=== PATIENT | female | born 1990 | race Caucasian/White ===

== ENCOUNTER 2017-05-29 18:02 | Inpatient (IN) | payer MEDICAID ==
[~2017-05-29] VITALS: Ht 160 cm; Wt 67.0 kg
[2017-06-03] MEDS ORDERED: MISOPROSTOL 25 MCG TABLET ONE (22:36)
[2017-06-03] MEDS ORDERED: OXYTOCIN 30U/ 0.9% NaCL 500ML 500 ML IV ONE (22:38)
[2017-06-03] MEDS: LACTATED RINGERS 1,000 ML IV SCH (22:50)
[2017-06-03] MEDS ORDERED: METOCLOPRAMIDE 5 MG/ML, 2ML IVPush PRN (23:00)
[2017-06-03] MEDS ORDERED: ONDANSETRON 2MG/ML, 2ML IVPush PRN (23:00)
[2017-06-03] MEDS ORDERED: CALCIUM CARBONATE 500 MG TAB.CHEW PO PRN (23:00)
[2017-06-03] MEDS ORDERED: SODIUM CITRATE/CITRIC ACID 30 ML UDC PO PRN (23:00)
[2017-06-03] MEDS ORDERED: FENTANYL PF 100 MCG/2ML IV PRN (23:00)
[2017-06-03] MEDS ORDERED: MISOPROSTOL 25 MCG TABLET VG PRN (23:00)
[2017-06-03 23:07] LABS: BASOPHILS # (AUTO) 0.07 x10^3/uL (0-0.1); BASOPHILS % (AUTO) 1 % (0-1); EOSINOPHILS # (AUTO) 0.12 x10^3/uL (0-0.4); EOSINOPHILS % (AUTO) 1 % (1-7); LYMPHOCYTES # (AUTO) 2.52 x10^3/uL (1-3.4); LYMPHOCYTES % (AUTO) 19 % (22-44); MD NO; MEAN CORPUSCULAR HEMOGLOBIN 33.5 pg (27.0-34.8); MEAN CORPUSCULAR VOLUME 98.6 fL (80-100); MEAN PLATELET VOLUME 9.1 fL (7.4-10.4); MONOCYTES # (AUTO) 0.95 x10^3/uL (0.2-0.8); MONOCYTES % (AUTO) 7 % (2-9); NEUTROPHILS # (AUTO) 9.59 x10^3/uL (1.8-6.8); NEUTROPHILS % (AUTO) 72 % (42-75); PLATELET COUNT 244 x10^3/uL (130-400); RED BLOOD COUNT 3.57 x10^6/uL (3.82-5.3); RED CELL DISTRIBUTION WIDTH 14.1 % (9.6-15.2)
[2017-06-03] MEDS ORDERED: LIDOCAINE 1%, 20ML ONE (23:09)
[2017-06-03] MEDS ORDERED: MISOPROSTOL 200 MCG TABLET ONE (23:09)
[2017-06-03] MEDS ORDERED: OXYTOCIN 30U/ 0.9% NaCL 500ML 500 ML ONE (23:09)
[2017-06-03] MEDS ORDERED: NEWBORN KIT ONE (23:09)
[2017-06-03] MEDS ORDERED: SODIUM CITRATE/CITRIC ACID 30 ML UDC ONE (23:47)
[2017-06-03] MEDS ORDERED: METOCLOPRAMIDE 5 MG/ML, 2ML ONE (23:47)
[2017-06-03] MEDS ORDERED: TERBUTALINE 1 MG/ML, 1ML ONE (23:57)
[2017-06-04] MEDS: OXYTOCIN 30U/ 0.9% NaCL 500ML 500 ML IV SCH
[2017-06-04] MEDS ORDERED: OXYTOCIN 30U/ 0.9% NaCL 500ML 500 ML IV PRN (04:21)
[2017-06-04] MEDS: D5%-LACTATED RINGERS 1,000 ML IV SCH ×4 (06:38→22:38)
[2017-06-04] MEDS ORDERED: FENTANYL PF 100 MCG/2ML ONE ×3 (11:38→16:36)
[2017-06-04] MEDS: FENTANYL PF 100 MCG/2ML IVPush PRN ×2 (11:40→15:31)
[2017-06-04] MEDS: LACTATED RINGERS 1,000 ML IV SCH ×3 (15:32→22:38)
[2017-06-04] MEDS ORDERED: BUPIVACAINE 0.25% ONE (16:36)
[2017-06-04] MEDS ORDERED: FENTANYL/BUPIV./NS/PF 250 ML EPIDCONT ONE (16:37)
[2017-06-04] MEDS ORDERED: DIPH,PERTUSS(ACELL),TET VAC/PF NC IM-VACC PRN (23:00)
[2017-06-04] MEDS ORDERED: ONDANSETRON 2MG/ML, 2ML IV PRN (23:00)
[2017-06-04] MEDS ORDERED: CALCIUM CARBONATE 500 MG TAB.CHEW PO PRN (23:00)
[2017-06-04] MEDS ORDERED: OXYcodone/APAP 5/325MG TABLET PO PRN (23:00)
[2017-06-04] MEDS ORDERED: MAGNESIUM HYDROXIDE 8%, 30ML UDC PO PRN (23:00)
[2017-06-04] MEDS ORDERED: RHOGAM FROM BLOOD BANK 1 NOTE EA IM/IV ONE (23:00)
[2017-06-04] MEDS ORDERED: MEASLES,MUMPS&RUBELLA VACC/PF 0.5 ML SQ PRN (23:00)
[2017-06-04] MEDS ORDERED: MISOPROSTOL 200 MCG TABLET PR PRN (23:00)
[2017-06-04] MEDS ORDERED: ACETAMINOPHEN 325 MG TABLET PO PRN ×2 (23:00)
[2017-06-05] MEDS ORDERED: OXYTOCIN 10 UNITS/ML, 1ML ONE
[2017-06-05] MEDS ORDERED: IBUPROFEN 600 MG TABLET ONE (00:35)
[2017-06-05] MEDS ORDERED: OXYcodone/APAP 5/325MG TABLET ONE (00:36)
[2017-06-05] MEDS: OXYcodone/APAP 5/325MG TABLET PO PRN ×3 (00:45→21:03)
[2017-06-05] MEDS: IBUPROFEN 600 MG TABLET PO PRN ×4 (00:45→21:04)
[2017-06-05] MEDS ORDERED: OXYTOCIN 30U/ 0.9% NaCL 500ML 500 ML ONE (00:58)
[2017-06-05 02:50] VITALS: BP 96/57
[2017-06-05] MEDS: FENTANYL PF 100 MCG/2ML IVPush PRN (03:46)
[2017-06-05 05:00] VITALS: BP 98/60
[2017-06-05] MEDS: LACTATED RINGERS 1,000 ML IV SCH (06:38)
[2017-06-05] MEDS: DOCUSATE 100 MG CAPSULE PO PRN ×2 (07:19→21:04)
[2017-06-05] MEDS: PRENATAL VIT/IRON/FA 1 EACH TABLET PO SCH (07:20)
[2017-06-05 08:00] VITALS: BP 100/57
[2017-06-05 08:35] LABS: MEAN CORPUSCULAR HEMOGLOBIN 33.9 pg (27.0-34.8); MEAN CORPUSCULAR HGB CONC 34.6 g/dL (32.4-35.8); MEAN CORPUSCULAR VOLUME 97.9 fL (80-100); MEAN PLATELET VOLUME 9.1 fL (7.4-10.4); PLATELET COUNT 203 x10^3/uL (130-400); RED BLOOD COUNT 3.05 x10^6/uL (3.82-5.3); RED CELL DISTRIBUTION WIDTH 14.1 % (9.6-15.2)
[2017-06-05 08:50] LABS: BASOPHILS # (AUTO) 0.09 x10^3/uL (0-0.1); BASOPHILS % (AUTO) 0 % (0-1); EOSINOPHILS # (AUTO) 0.03 x10^3/uL (0-0.4); EOSINOPHILS % (AUTO) 0 % (1-7); LYMPHOCYTES # (AUTO) 1.83 x10^3/uL (1-3.4); LYMPHOCYTES % (AUTO) 9 % (22-44); MD SCAN; MONOCYTES # (AUTO) 1.35 x10^3/uL (0.2-0.8); MONOCYTES % (AUTO) 6 % (2-9); NEUTROPHILS # (AUTO) 17.81 x10^3/uL (1.8-6.8); NEUTROPHILS % (AUTO) 84 % (42-75)
[2017-06-05] MEDS: OXYTOCIN 30U/ 0.9% NaCL 500ML 500 ML IV SCH (08:55)
[2017-06-05 19:03] VITALS: BP 96/61
[2017-06-06] MEDS: IBUPROFEN 600 MG TABLET PO PRN (07:09)
[2017-06-06] MEDS: OXYcodone/APAP 5/325MG TABLET PO PRN (07:09)
[2017-06-06 07:30] VITALS: BP 109/75
[2017-06-06] MEDS: PRENATAL VIT/IRON/FA 1 EACH TABLET PO SCH (09:00)
[2017-06-06] MEDS ORDERED: OXYC-302 PO ×2 (09:04→09:08)
[2017-06-06] MEDS ORDERED: IBUP-1222 PO (09:04)
== END 2017-06-06 14:53 | disposition home or self-care (01) | DRG 775 ==
LOC: LDIP 06-03 22:11 → 2NW 06-05 02:32
PROVIDERS: ADMIT Obstetrics & Gynecology; ATTEND Obstetrics & Gynecology
PROC: 10E0XZZ Delivery of Products of Conception, External Approach (ICD-10-PCS; principal; 2017-06-04)
PROC: 0KQM0ZZ Repair Perineum Muscle, Open Approach (ICD-10-PCS; 2017-06-04)
PROC: 10907ZC Drainage of Amniotic Fluid, Therapeutic from Products of Conception, Via Natural or Artificial Opening (ICD-10-PCS; 2017-06-04)
PROC: 3E0R3BZ Introduction of Anesthetic Agent into Spinal Canal, Percutaneous Approach (ICD-10-PCS; 2017-06-04)
PROC: 00HU33Z Insertion of Infusion Device into Spinal Canal, Percutaneous Approach (ICD-10-PCS; 2017-06-04)
DX: O48.0 Post-term pregnancy (principal); O70.1 Second degree perineal laceration during delivery; Z3A.40 40 weeks gestation of pregnancy; Z37.0 Single live birth
CPT/HCPCS: 36415; 82803; 85025; 86850; 86900; J3010; J2590; J7120; J7121